=== PATIENT | female | born 1970 | race Caucasian/White ===

== ENCOUNTER → 2017-10-30 | Outpatient (CLI) | payer OTHER ==
[~2017-10-30] MED LIST: PRENTAB26
--- NOTE | 2017-10-31 07:45 | MAMMOGRAPHY REPORT ---
BILATERAL DIGITAL DIAGNOSTIC MAMMOGRAM TOMOSYNTHESIS WITH CAD AND TARGETED RIGHT ULTRASOUND: 8 CLINICAL HISTORY: The patient reports a palpable lump in her right breast. TECHNIQUE: Breast tomosynthesis in addition to standard 2D mammography was performed. Current study was also evaluated with a Computer Aided Detection (CAD) system. Bilateral CC and MLO 2D and tomosyn thesis images were obtained. COMPARISON: Comparison is made to exams dated: 10/05/2014 mammogram, 08/05/2013 mammogram, 08/04/2012 m ammogram, 08/06/2011 ultrasound, 07/09/2011 mammogram, and 06/25/2010 mammogram - [facility]. BREAST COMPOSITION: The tissue of both breasts is extremely dense, which lowers the sensitivity of m ammography. FINDINGS: A triangle marker meza the site of the palpable lump in the right upper outer quadrant. A t the site of the palpable lump there are possible obscured masses, best seen on the tomosynthesis im ages, for which ultrasound was performed. Additionally, there are other circumscribed benign-appeari ng masses seen bilaterally on the tomosynthesis images, including an oval circumscribed 3 cm mass wit hin the right upper inner quadrant. The remainder of both breasts demonstrate no suspicious masses, calcifications, or areas of architectural distortion. Scattered bilateral benign-appearing calcifica tions are noted. Targeted ultrasound was performed of the area of the palpable lump pointed out by the patient, in the right breast at approximately 10:00, 4 cm from the nipple. At the site of the palpable lump there a re multiple adjacent anechoic circumscribed masses, consistent with benign simple cysts. One measure s 1.8 x 1.6 x 2.0 cm, another more anteriorly measures 1.4 cm, and another more posteriorly at approx imately 5 cm from the nipple measures 1.8 cm. These correspond with the mammographic masses as well a s the palpable lump and are consistent with benign cysts. Multiple other anechoic benign cysts were s een during the exam, including an 8 mm anechoic benign cyst in the right 10:00 breast, 3 cm from the nipple. An oval anechoic circumscribed mass measuring 3.0 x 1.0 x 2.8 cm is seen within the right 12 30 to 1:00 breast, 3 cm from the nipple, which corresponds with another mammographic mass and is cons istent with a benign cyst. IMPRESSION: ACR BI-RADS CATEGORY 2: BENIGN, TARGETED ULTRASOUND ACR BI-RADS CATEGORY 2: BENIGN Multiple adjacent benign cysts in the right 10:00 breast which account for the palpable right breast lump felt by the patient. There is no mammographic or targeted sonographic evidence of malignancy. Recommend clinical follow-up for the right breast palpable lump, and recommend routine bilateral scre ening mammograms in one year. The patient has been verbally notified of the results. Approximately 10% of breast cancers are not detected with mammography. A negative mammographic report should not delay biopsy if a clinically suggestive mass is present. Leigh Ann Lloyd M.D. ah/:10/30/2017 09:12:25 [place] [employer] Tender: Yola FRIEND(Slick)(Kd), [facility] letter sent: Normal 1/2 BI-RADS Code: ACR BI-RADS Category 2: Benign Ultrasound BI-RADS: ACR BI-RADS Category 2: Benign
== END | disposition home or self-care (01) ==
LOC: C.MAMM 08:37
PROVIDERS: ATTEND Family Medicine
DX: N63.10 Unspecified lump in the right breast, unspecified quadrant (principal)